=== PATIENT | female | born 1955 | race Caucasian/White ===

== ENCOUNTER 2017-07-28 14:52 | Outpatient (CLI) | payer OTHER | END 2017-07-28 14:53 | disposition home or self-care (01) | LOC: BICMAMMO 14:52 | PROVIDERS: ATTEND Nurse Practitioner Family | DX: Z78.0 Asymptomatic menopausal state (principal) | CPT/HCPCS: 77080 ==

== ENCOUNTER 2019-03-10 07:07 | Outpatient (CLI) | payer BC ==
--- NOTE | 2019-03-10 08:17 | ULT ---
ABDOMINAL AORTIC SONOGRAM WITH DUPLEX EVALUATION: HISTORY: Aortic tortuosity. Evaluate for aneurysm. FINDINGS: Proximal abdominal aorta is 2.3 cm AP diameter. Mid abdominal aorta 1.5 cm. Distal abdominal aorta 1.3 cm. No free fluid. Good color and spectral Doppler flow within the aorta. Each common iliac ar teries has a normal appearance near the bifurcation. IMPRESSION: No evidence of abdominal aortic aneurysm. POS: AMANDEEP
== END 2019-03-10 07:08 | disposition home or self-care (01) ==
LOC: SCSULT 07:07
PROVIDERS: ATTEND Nurse Practitioner Family
DX: Q25.46 Tortuous aortic arch (principal)
CPT/HCPCS: 76706

== ENCOUNTER 2019-09-04 14:22 | Outpatient (CLI) | payer OTHER ==
[2019-09-04] MEDS ORDERED: Iopamidol 370 76% 100 ML VIAL ONE (15:53)
--- NOTE | 2019-09-04 16:14 | CT ---
POST CONTRAST SOFT TISSUE NECK CT: HISTORY: Lymphoma. Nodules in the posterior neck. COMPARISON: None FINDINGS: Visualized brain parenchyma and orbits are unremarkable. Sinuses: Adequate aeration of visualized sinuses and mastoid air cells. Aerodigestive tract: Nasopharynx does not demonstrate significant lymphoid hyperplasia. Oral cavity d oes not have any masses. Midline fatty raphae of the tongue is preserved. There is fullness of bilateral palatine tonsils. Symmetric attenuation of the parotid and submandibular glands. Symmetric attenuation of the paraspinal muscles. Cervical spine vertebral body height is maintained. There is no fracture. Moderate degenerative disc disease at C4-C5 and C5-C6. Varying degrees of central canal stenosis and neural foraminal narrowing at the basis of degenerative change. Technique limits evaluation. Grossly the great vessels of the neck are patent. Mild mass effect upon the posterior right supraglot tic larynx secondary to medial deviation of the right carotid artery. Lymph nodes: Extensive soft tissue neck lymphadenopathy. Right neck: Enlarged level 1A lymph node measures 1.4 x 1.0 cm. Enlarged level 1B lymph node measures 1.2 x 2.1 cm. Enlarged right level 2 lymph node measures 1.8 x 2.6 cm. Additional enlarged right neck lymph nodes are noted. There is also evidence of right periclavicular lymphadenopathy as well as axillary lymphadenopathy. Left neck: Enlarged level 1B lymph node measures 0.9 x 1.7 cm. Enlarged left level 2 lymph node measu res 1.7 x 1.2 cm. A large level 5 lymph node measures 2.2 x 1.3 cm. Bilateral axillary lymph nodes are noted. IMPRESSION: Extensive bilateral soft tissue neck lymphadenopathy, compatible with patient's reported history. Transcribed Date/Time: 09/04/2019 4:23 PM
--- NOTE | 2019-09-04 16:18 | CT ---
EXAM: CT of the chest with contrast CT of the abdomen and pelvis with contrast HISTORY: Lymphoproliferative disorder CLL versus lymphoma COMPARISON: None TECHNIQUE: 1. Multiple contiguous axial images were obtained in a CT the chest with contrast. Coronal and sagitt al reformats were performed. 2. Multiple contiguous axial images were obtained and a CT of the abdomen and pelvis with contrast. C oronal and sagittal reformats were performed. FINDINGS: CT CHEST: HEART: Normal in size without focal cardiac abnormality MEDIASTINUM: No hilar or mediastinal lymphadenopathy. LUNGS: No focal infiltrates, nodules, or masses. PLEURAL SPACE: No pneumothorax or pleural effusion. CHEST WALL SOFT TISSUES: Prominent bilateral axillary lymph nodes measuring up to 2.[address] ABDOMEN/PELVIS: ABDOMEN: LIVER: Multiple well-circumscribed cysts measuring up to 4.8 cm in size. BILE DUCTS: Normal caliber. GALLBLADDER: Calcified gallstone in the dependent gallbladder. PANCREAS: within normal limits. SPLEEN: within normal limits. ADRENALS: within normal limits. KIDNEYS: Small subcentimeter hypodensity in the right kidney likely represents a cyst. PELVIS: REPRODUCTIVE ORGANS: No pelvic masses. URETERS: within normal limits. BLADDER: within normal limits. PERITONEUM: No ascites or free air, no fluid collection. BOWEL: Normal caliber. MESENTERY AND RETROPERITONEUM: No enlarged mesenteric or retroperitoneal lymph nodes. The retroperito davion lymph nodes may be increased in number. There are prominent bilateral pelvic sidewall lymph nodes measuring up to 2.9 cm in size. VESSELS: Normal. ABDOMINAL WALL: No inguinal adenopathy. OSSEOUS STRUCTURES: Mild degenerative changes in the spine. IMPRESSION: 1. Prominent bilateral axillary lymph nodes 2. Retroperitoneal lymph nodes are increased in number but not size 3. Hepatic cysts 4. Cholelithiasis 5. Bilateral pelvic enlarged lymph nodes
== END 2019-09-04 14:23 | disposition home or self-care (01) ==
LOC: BICCT 14:22
PROVIDERS: ATTEND Internal Medicine Medical Oncology
DX: R22.1 Localized swelling, mass and lump, neck (principal); D72.828 Other elevated white blood cell count; K76.89 Other specified diseases of liver; K80.20 Calculus of gallbladder without cholecystitis without obstruction; R59.0 Localized enlarged lymph nodes
CPT/HCPCS: 70491; 71260; 74177; 82565; Q9967

== ENCOUNTER 2020-09-04 09:56 | Outpatient (CLI) | payer OTHER ==
--- NOTE | 2020-09-19 09:24 | MMO ---
Bilateral MAMMO Bilat Screen [facility]. CLINICAL HISTORY: Patient is 65 years old and is seen for screening. The patient has no family history of breast cancer. The patient has no personal history of cancer. VIEWS: The views performed were: bilateral craniocaudal with tomosynthesis and bilateral mediolateral oblique with tomosynthesis. FILMS COMPARED: The present examination has been compared to prior imaging studies performed at [facility] on 07/08/2016, 07/14/2017, 08/15/2018 and 08/21/2019. This study has been interpreted with the assistance of computer-aided detection. MAMMOGRAM FINDINGS: The breasts are heterogeneously dense, which could obscure a lesion on mammography. There are stable benign appearing calcifications seen in both breasts. There are no suspicious masses, suspicious calcifications, or new areas of architectural distortion. IMPRESSION: THERE IS NO MAMMOGRAPHIC EVIDENCE OF MALIGNANCY. A ROUTINE FOLLOW-UP MAMMOGRAM IN 1 YEAR IS RECOMMENDED. THE RESULTS OF THIS EXAM WERE SENT TO THE PATIENT. ACR BI-RADS Category 2 - Benign finding MAMMOGRAPHY NOTE: 1. A negative mammogram report should not delay a biopsy if a dominant of clinically suspicious mass is present. 2. Approximately 10% to 15% of breast cancers are not detected by mammography. 3. Adenosis and dense breasts may obscure an underlying neoplasm. Reported by: KAMINI GREEN MD Electonically Signed: [id number]
== END 2020-09-04 09:57 | disposition home or self-care (01) ==
LOC: BICMAMMO 09:56
PROVIDERS: ATTEND Nurse Practitioner Family
DX: Z12.31 Encounter for screening mammogram for malignant neoplasm of breast (principal)
CPT/HCPCS: 77063; 77067

== ENCOUNTER 2020-09-04 10:39 | Outpatient (CLI) | payer OTHER ==
--- NOTE | 2020-09-04 11:28 | ULT ---
ULTRASOUND ABDOMEN LIMITED: (RIGHT UPPER QUADRANT) DATE: 09/04/2020 HISTORY: 64-year-old female with abnormal LFTs. Abnormal laboratory values. COMPARISON: CT of 09/04/2019. No prior right upper quadrant abdominal ultrasound. FINDINGS: At the region of the hepatic hilum, there are several, hypoechoic well-circumscribed, lobular masses. One of them is 4.0 x 4.4 x 2.7 cm. Another abutting the pancreatic head is 5.2 x 3.7 x 1.9 cm. Another abutting the pancreatic body is 3.5 x 1.7 x 2.8 cm. Review of the prior CT demonstrates that these are solid masses which were present previously. Information provided for that prior CT was "lymphoproliferative disorder CLL versus lymphoma." This would be consistent with that. There is a 7 mm mobile gallstone, which can be seen as a calcified stone on that prior CT. Gallbladder wall thickness is normal. No pericholecystic fluid. No sludge. Common duct caliber 3 mm. Multiple prominent hepatic cysts in the right and left lobes. One of the larger 1's is 5 x 5.3 x 5.1 cm in the left lobe. Hepatic parenchymal echogenicity normal. No sonographic abnormality of pancreas. No hydronephrosis of right kidney. No free fluid in right upper quadrant. IMPRESSION: 1) several moderately large hypoechoic masses at region of hepatic hilum, consistent with pathologica l marce hepatis lymphadenopathy. 2.) Cholelithiasis, but without evidence of acute cholecystitis. 3) multiple hepatic cysts.
== END 2020-09-04 10:40 | disposition home or self-care (01) ==
LOC: BICULT 10:39
PROVIDERS: ATTEND Nurse Practitioner Family
DX: R94.5 Abnormal results of liver function studies (principal); R89.9 Unspecified abnormal finding in specimens from other organs, systems and tissues; R16.0 Hepatomegaly, not elsewhere classified; K80.20 Calculus of gallbladder without cholecystitis without obstruction; K76.89 Other specified diseases of liver
CPT/HCPCS: 76705

== ENCOUNTER 2022-04-06 07:25 | Outpatient (CLI) | payer OTHER ==
[2022-04-06] MEDS ORDERED: Iopamidol-370 76% 500 ML 1 ML ONE (10:04)
== END 2022-04-06 07:26 | disposition home or self-care (01) ==
LOC: BICCT 07:25
PROVIDERS: ATTEND Internal Medicine Medical Oncology
DX: C91.10 Chronic lymphocytic leukemia of B-cell type not having achieved remission (principal); R59.0 Localized enlarged lymph nodes
CPT/HCPCS: 71260; 74177; Q9967

== ENCOUNTER 2023-02-18 14:22 | Outpatient (CLI) | payer MEDICARE | END 2023-02-18 14:23 | disposition home or self-care (01) | LOC: BICMAMMO 14:22 | PROVIDERS: ATTEND Nurse Practitioner Family | DX: N63.20 Unspecified lump in the left breast, unspecified quadrant (principal) | CPT/HCPCS: 77065; G0279 ==

== ENCOUNTER 2023-12-23 15:33 | Outpatient (CLI) | payer MEDICARE | END 2023-12-23 15:34 | disposition home or self-care (01) | LOC: BICCT 15:33 | PROVIDERS: ATTEND Nurse Practitioner Family | DX: R20.0 Anesthesia of skin (principal); R42 Dizziness and giddiness; I10 Essential (primary) hypertension; G93.5 Compression of brain | CPT/HCPCS: 70450 ==